=== PATIENT | female | born 1945 | race Asian ===

== ENCOUNTER 2020-09-08 17:38 | Emergency (ER) | payer MEDICARE, MEDICAID ==
[~2020-09-08] VITALS: Ht 157.5 cm; Wt 90.0 kg
[2020-09-08] MEDS ORDERED: ACETAMINOPHEN 325MG TABLET PO STA (18:27)
[2020-09-08] MEDS ORDERED: GABAPENTIN 300MG CAPSULE PO ONE (18:30)
[2020-09-08 18:53] LABS: BASOPHILS % 0.9 % (0.0-2.0); EOSINOPHILS % 3.2 % (0.0-5.0); HEMATOCRIT. 32.7 % (36.0-48.0); LYMPHOCYTES % 13.2 % (20.0-50.0); MEAN CORPUSCULAR HEMOGLOBIN 31.5 pg (28.0-32.0); MEAN CORPUSCULAR VOLUME 93.4 fL (81.0-99.0); MEAN PLATELET VOLUME 7.2 fl (7.4-10.4); MONOCYTES % 9.5 % (2.0-8.0); NEUTROPHILS % 73.2 % (40.0-76.0); PLATELET 348 x1000/uL (130-400); RED CELL DISTRIBUTION WIDTH 13.5 % (11.6-14.6)
[2020-09-08 18:54] LABS: CHLORIDE 100 mEq/L (98-107)
[2020-09-08] MEDS ORDERED: FUROSEMIDE 20MG/2ML VIAL IVP ONE (20:15)
[2020-09-08 21:43] LABS: CLARITY URINE CLEAR (CLEAR); COLOR URINE YELLOW (YELLOW); KETONES URINE NEGATIVE (NEGATIVE); LEUKOCYTE ESTERASE URINE 3+ (NEGATIVE); NITRITE URINE NEGATIVE (NEGATIVE); OCCULT BLOOD URINE TRACE (NEGATIVE); PROTEIN URINE NEGATIVE (NEGATIVE); SPECIFIC GRAVITY URINE 1.014 (1.005-1.030); UROBILINOGEN URINE 0.2 E.U./dL (0.2-1.0)
[2020-09-08] MEDS ORDERED: ASPIRIN 81MG TABLET PO ONE (22:30)
[2020-09-09 01:20] VITALS: BP 121/49
== END 2020-09-09 01:30 | disposition short-term general hospital (02) ==
LOC: ER 17:38
DX: I11.0 Hypertensive heart disease with heart failure (principal); I50.9 Heart failure, unspecified; I21.A1 Myocardial infarction type 2; E11.42 Type 2 diabetes mellitus with diabetic polyneuropathy; E07.9 Disorder of thyroid, unspecified; Z79.82 Long term (current) use of aspirin
CPT/HCPCS: 36415; 71045; 80048; 81003; 83880; 84484; 85025; 93005; 93970; 96374; 99285; J1940

== ENCOUNTER 2020-11-10 08:07 | Emergency (ER) | payer MEDICARE, MEDICAID ==
[~2020-11-10] VITALS: Ht 157.5 cm; Wt 73.0 kg
[2020-11-10 10:25] LABS: HEMATOCRIT. 32.5 % (36.0-48.0); HEMOGLOBIN. 11.2 g/dL (12.0-16.0); MEAN CORPUSCULAR HEMOGLOBIN 31.5 pg (28.0-32.0); MEAN CORPUSCULAR VOLUME 91.3 fL (81.0-99.0); MEAN PLATELET VOLUME 6.8 fl (7.4-10.4); PLATELET 306 x1000/uL (130-400); RED BLOOD CELL COUNT 3.56 mill/uL (4.2-5.4); RED CELL DISTRIBUTION WIDTH 13.9 % (11.6-14.6)
[2020-11-10 10:39] LABS: CLARITY URINE CLEAR (CLEAR); COLOR URINE YELLOW (YELLOW); KETONES URINE TRACE (NEGATIVE); LEUKOCYTE ESTERASE URINE NEGATIVE (NEGATIVE); NITRITE URINE NEGATIVE (NEGATIVE); OCCULT BLOOD URINE TRACE (NEGATIVE); PROTEIN URINE 1+ (NEGATIVE); SPECIFIC GRAVITY URINE 1.012 (1.005-1.030); UROBILINOGEN URINE 0.2 E.U./dL (0.2-1.0)
[2020-11-10 10:46] LABS: CHLORIDE 97 mEq/L (98-107)
[2020-11-10 11:46] LABS: INR 1.1; PROTHROMBIN TIME 11.3 sec (9.6-11.0)
[2020-11-10 15:06] LABS: PLATELET ESTIMATE NORMAL
[2020-11-10 17:44] VITALS: BP 168/79
== END 2020-11-10 17:44 | disposition home or self-care (01) ==
LOC: ER 08:07 → CANBEDREQ 20:47
DX: R53.1 Weakness (principal); E11.9 Type 2 diabetes mellitus without complications; I10 Essential (primary) hypertension; Z88.6 Allergy status to analgesic agent; Z98.890 Other specified postprocedural states
CPT/HCPCS: 36415; 71045; 80053; 81003; 83605; 84145; 84484; 85025; 93005; 99285

== ENCOUNTER 2020-11-14 07:30 | Inpatient (IN) | payer MEDICARE, MEDICAID ==
[~2020-11-14] VITALS: Ht 162.6 cm; Wt 79.8 kg
[2020-11-14] MEDS ORDERED: ACETAMINOPHEN 325MG TABLET PO STA (08:07)
[2020-11-14] MEDS ORDERED: AZITHROMYCIN 500 MG in DEXT 5% WATER 250 ML IV ONE (08:15)
[2020-11-14] MEDS ORDERED: CEFTRIAXONE 1 G PREMIX 50 ML IV ONE (08:15)
[2020-11-14] MEDS ORDERED: CEFTRIAXONE 1,000 MG in DEXTROSE 5% WATER 50 ML IV NR (09:00)
[2020-11-14 09:06] LABS: HEMATOCRIT. 32.9 % (36.0-48.0); HEMOGLOBIN. 11.2 g/dL (12.0-16.0); MEAN CORPUSCULAR HEMOGLOBIN 30.7 pg (28.0-32.0); MEAN CORPUSCULAR VOLUME 90.5 fL (81.0-99.0); MEAN PLATELET VOLUME 6.9 fl (7.4-10.4); PLATELET 270 x1000/uL (130-400); RED BLOOD CELL COUNT 3.64 mill/uL (4.2-5.4); RED CELL DISTRIBUTION WIDTH 13.6 % (11.6-14.6)
[2020-11-14 09:11] LABS: PARTIAL THROMBOPLASTIN TIME 35.3 sec (23.4-31.0); PROTHROMBIN TIME 10.6 sec (9.6-11.0)
[2020-11-14 09:12] LABS: CHLORIDE 97 mEq/L (98-107)
[2020-11-14 09:47] LABS: CLARITY URINE CLOUDY (CLEAR); COLOR URINE YELLOW (YELLOW); KETONES URINE 1+ (NEGATIVE); LEUKOCYTE ESTERASE URINE 2+ (NEGATIVE); NITRITE URINE NEGATIVE (NEGATIVE); OCCULT BLOOD URINE TRACE (NEGATIVE); PROTEIN URINE 2+ (NEGATIVE); SPECIFIC GRAVITY URINE 1.018 (1.005-1.030); UROBILINOGEN URINE 0.2 E.U./dL (0.2-1.0)
[2020-11-14 11:44] LABS: PLATELET ESTIMATE NORMAL
[2020-11-14] MEDS ORDERED: MORPHINE SULFATE 2 MG/ML CPJ (NOT FOR IM USE) IV PRN (16:00)
[2020-11-14] MEDS ORDERED: ONDANSETRON HCL 4MG/2ML INJ IV PRN (16:00)
[2020-11-14] MEDS ORDERED: ACETAMINOPHEN 325MG TABLET PO PRN (16:00)
[2020-11-14] MEDS ORDERED: IPRATROPIUM/ALBUTEROL 0.5-3(2.5)MG/3ML NEB HHN PRN (16:00)
[2020-11-14] MEDS ORDERED: ENOXAPARIN 40MG/0.4ML SYR SUBCUT SCH (17:00)
[2020-11-14] MEDS: LEVOFLOXACIN 500MG PREMIX 100 ML IV SCH (18:00)
[2020-11-15 05:31] LABS: HEMOGLOBIN. 11.4 g/dL (12.0-16.0); MEAN CORPUSCULAR HEMOGLOBIN 30.4 pg (28.0-32.0); MEAN CORPUSCULAR VOLUME 90.4 fL (81.0-99.0); MEAN PLATELET VOLUME 6.5 fl (7.4-10.4); PLATELET 254 x1000/uL (130-400); RED BLOOD CELL COUNT 3.76 mill/uL (4.2-5.4); RED CELL DISTRIBUTION WIDTH 13.4 % (11.6-14.6)
[2020-11-15 05:36] LABS: CHLORIDE 98 mEq/L (98-107)
[2020-11-15 05:44] LABS: CREATINE KINASE 117 IU/L (26-192); LDL CHOLESTEROL 110 mg/dL (5-100)
[2020-11-15 05:45] LABS: CREATINE KINASE MB FRACTION < 1.0 ng/mL (0.5-3.6)
[2020-11-15 05:46] LABS: HDL CHOLESTEROL 54 mg/dL (40-59); T4 FREE 1.12 ng/dL (0.76-1.46)
[2020-11-15] MEDS: ZINC SULFATE 220 MG ( 50 ) CAPSULE PO SCH (13:30)
[2020-11-15 13:37] LABS: PLATELET ESTIMATE NORMAL
[2020-11-15] MEDS: DEXAMETHASONE 10 MG/ML VIAL IV SCH (14:00)
[2020-11-15] MEDS: SODIUM CHLORIDE 0.9% 1,000 ML IV SCH ×2 (14:00→22:00)
[2020-11-15] MEDS: LEVOFLOXACIN 500MG PREMIX 100 ML IV SCH (21:24)
[2020-11-16] MEDS: ASCORBIC ACID 500 MG TABLET PO SCH ×3 (06:19→21:29)
[2020-11-16 08:50] LABS: HEMATOCRIT. 32.5 % (36.0-48.0); HEMOGLOBIN. 11.2 g/dL (12.0-16.0); MEAN CORPUSCULAR HEMOGLOBIN 31.1 pg (28.0-32.0); MEAN CORPUSCULAR VOLUME 90.3 fL (81.0-99.0); MEAN PLATELET VOLUME 6.7 fl (7.4-10.4); PLATELET 274 x1000/uL (130-400); RED BLOOD CELL COUNT 3.59 mill/uL (4.2-5.4); RED CELL DISTRIBUTION WIDTH 13.2 % (11.6-14.6)
[2020-11-16 08:54] LABS: CHLORIDE 103 mEq/L (98-107)
[2020-11-16 13:51] LABS: PLATELET ESTIMATE NORMAL
[2020-11-16] MEDS: DEXAMETHASONE 10 MG/ML VIAL IV SCH (15:40)
[2020-11-16] MEDS: ZINC SULFATE 220 MG ( 50 ) CAPSULE PO SCH (18:52)
[2020-11-16] MEDS: ENOXAPARIN 40MG/0.4ML SYR SUBCUT SCH (18:53)
[2020-11-16 19:01] LABS: BG BASE EXCESS -1.8 mmol/L (-2.0-2.0); BG CARBOXYHEMOGLOBIN 0.3 % (0.5-1.5); BG DEOXYHEMOGLOBIN 1.8 % (0.0-5.0); BG FRACTION INSPIRED OXYGEN 36; BG METHEMOGLOBIN 0.3 % (0.0-1.5); BG OXYGEN SATURATION 98.2 % (92.0-98.5); BG OXYHEMOGLOBIN 97.6 % (94.0-97.0); BG PCO2 29.9 mmHg (35.0-45.0); BG PH 7.465 (7.350-7.450); BG PO2 168.4 mmHg (75.0-100.0); BG SAMPLE SITE RIGHT RADIAL; BG TOTAL HEMOGLOBIN 11.7 g/dL (12.0-18.0); BG VENT MODE NASAL CANNULA
[2020-11-16] MEDS: LEVOFLOXACIN 500MG PREMIX 100 ML IV SCH (21:29)
[2020-11-17 00:42] LABS: BASOPHILS % 0.2 % (0.0-2.0); HEMATOCRIT. 36.3 % (36.0-48.0); HEMOGLOBIN. 12.1 g/dL (12.0-16.0); LYMPHOCYTES % 12.6 % (20.0-50.0); MEAN CORPUSCULAR VOLUME 90.4 fL (81.0-99.0); MEAN PLATELET VOLUME 6.9 fl (7.4-10.4); MONOCYTES % 13.9 % (2.0-8.0); NEUTROPHILS % 73.3 % (40.0-76.0); PLATELET 303 x1000/uL (130-400); RED BLOOD CELL COUNT 4.02 mill/uL (4.2-5.4); RED CELL DISTRIBUTION WIDTH 13.1 % (11.6-14.6)
[2020-11-17 00:46] LABS: CHLORIDE 102 mEq/L (98-107)
[2020-11-17 02:00] VITALS: BP 147/57
[2020-11-17 04:00] VITALS: BP 147/50
[2020-11-17] MEDS ORDERED: GLIP5TAB12 PO (06:14)
[2020-11-17] MEDS ORDERED: GLIP10TA10 PO (06:14)
[2020-11-17] MEDS ORDERED: METF-416 PO (06:14)
[2020-11-17] MEDS ORDERED: PIOG45TA5 PO (06:14)
[2020-11-17] MEDS ORDERED: COR25 PO (06:14)
[2020-11-17] MEDS ORDERED: DEXTROSE 50% WATER 50ML SYRINGE IV PRN (07:15)
[2020-11-17 08:00] VITALS: BP 124/50
[2020-11-17] MEDS: ZINC SULFATE 220 MG ( 50 ) CAPSULE PO SCH (08:21)
[2020-11-17] MEDS: DEXAMETHASONE 10 MG/ML VIAL IV SCH (08:21)
[2020-11-17] MEDS: ENOXAPARIN 40MG/0.4ML SYR SUBCUT SCH (08:22)
[2020-11-17] MEDS: INSULIN LISPRO 100 UNITS/ML SUBCUT SCH ×4 (08:23→22:03)
[2020-11-17] MEDS: ASCORBIC ACID 500 MG TABLET PO SCH ×2 (08:24→22:03)
[2020-11-17] MEDS ORDERED: *PATIENT'S OWN MEDICATION STORAGE XX SCH (09:45)
[2020-11-17 10:50] LABS: BASOPHILS % 0.3 % (0.0-2.0); HEMATOCRIT. 32.4 % (36.0-48.0); HEMOGLOBIN. 10.8 g/dL (12.0-16.0); LYMPHOCYTES % 7.5 % (20.0-50.0); MEAN CORPUSCULAR HEMOGLOBIN 30.5 pg (28.0-32.0); MEAN CORPUSCULAR VOLUME 91.8 fL (81.0-99.0); MEAN PLATELET VOLUME 6.7 fl (7.4-10.4); NEUTROPHILS % 80.2 % (40.0-76.0); PLATELET 271 x1000/uL (130-400); RED BLOOD CELL COUNT 3.53 mill/uL (4.2-5.4); RED CELL DISTRIBUTION WIDTH 13.4 % (11.6-14.6)
[2020-11-17 11:01] LABS: CHLORIDE 104 mEq/L (98-107)
[2020-11-17 12:00] VITALS: BP 151/56
[2020-11-17] MEDS: LOSARTAN POTASSIUM 50 MG TABLET PO SCH (12:41)
[2020-11-17] MEDS: BLOOD SUGAR DIAGNOSTIC STRIP TEST SCH ×3 (12:44→21:38)
[2020-11-17 16:00] VITALS: BP 114/54
[2020-11-17] MEDS: LEVOFLOXACIN 500MG TABLET PO SCH (17:24)
[2020-11-17 20:00] VITALS: BP 133/63
[2020-11-18] VITALS: BP 122/47
[2020-11-18 04:00] VITALS: BP 143/59
[2020-11-18] MEDS: INSULIN LISPRO 100 UNITS/ML SUBCUT SCH ×4 (07:40→23:18)
[2020-11-18] MEDS: BLOOD SUGAR DIAGNOSTIC STRIP TEST SCH ×4 (07:52→21:00)
[2020-11-18 08:00] VITALS: BP 151/53
[2020-11-18] MEDS: LOSARTAN POTASSIUM 50 MG TABLET PO SCH (11:47)
[2020-11-18] MEDS: DEXAMETHASONE 10 MG/ML VIAL IV SCH (11:47)
[2020-11-18] MEDS: LEVOFLOXACIN 500MG TABLET PO SCH (11:47)
[2020-11-18] MEDS: ZINC SULFATE 220 MG ( 50 ) CAPSULE PO SCH (11:47)
[2020-11-18] MEDS: ASCORBIC ACID 500 MG TABLET PO SCH ×2 (11:47→23:19)
[2020-11-18] MEDS: ENOXAPARIN 40MG/0.4ML SYR SUBCUT SCH (11:48)
[2020-11-18 12:00] VITALS: BP 144/57
[2020-11-18 16:00] VITALS: BP 148/62
[2020-11-18 20:00] VITALS: BP 153/56
[2020-11-19] VITALS: BP 122/52
[2020-11-19 04:00] VITALS: BP 153/58
[2020-11-19 08:00] VITALS: BP 158/51
[2020-11-19] MEDS: BLOOD SUGAR DIAGNOSTIC STRIP TEST SCH (08:07)
[2020-11-19] MEDS: ASCORBIC ACID 500 MG TABLET PO SCH (08:09)
[2020-11-19] MEDS: ZINC SULFATE 220 MG ( 50 ) CAPSULE PO SCH (08:09)
[2020-11-19] MEDS: DEXAMETHASONE 10 MG/ML VIAL IV SCH (08:10)
[2020-11-19] MEDS: ENOXAPARIN 40MG/0.4ML SYR SUBCUT SCH (08:10)
[2020-11-19] MEDS: INSULIN LISPRO 100 UNITS/ML SUBCUT SCH (08:11)
[2020-11-19] MEDS: LOSARTAN POTASSIUM 50 MG TABLET PO SCH (08:12)
[2020-11-19 11:31] VITALS: BP 158/51
[2020-11-19] MEDS ORDERED: PIOGLITAZONE 45MG TABLET PO SCH (14:00)
[2020-11-20] MEDS ORDERED: GLIPIZIDE 10MG TABLET PO SCH (07:10)
== END 2020-11-19 12:55 | DRG 177 ==
LOC: ER 07:45 → MICUSO 13:57 → 8WST 11-17 02:02
PROVIDERS: ADMIT Internal Medicine; ATTEND Internal Medicine
DX: U07.1 COVID-19 (principal); J12.89 Other viral pneumonia; J96.91 Respiratory failure, unspecified with hypoxia; N39.0 Urinary tract infection, site not specified; E87.1 Hypo-osmolality and hyponatremia; E11.9 Type 2 diabetes mellitus without complications; I10 Essential (primary) hypertension; Z88.8 Allergy status to other drugs, medicaments and biological substances; Z79.899 Other long term (current) drug therapy
CPT/HCPCS: 36415; 36600; 71045; 80048; 80053; 80061; 81003; 82375; 82550; 82553; 82728; 82805; 82962; 83036; 83605; 84145; 84439; 84443; 84484; 85025; 85379; 86141; 87635; 93005; 99285; C1893; J0456; J0696; J1100; J1650; J1815; J1956; J7060

== ENCOUNTER 2021-01-02 22:03 | Emergency (ER) | payer MEDICARE, MEDICAID ==
[~2021-01-02] VITALS: Ht 152.4 cm; Wt 55.0 kg
[~2021-01-02 22:03] MED LIST: COR25 PO; GLIP10TA10 PO; GLIP5TAB12 PO; METF-416 PO; PIOG45TA5 PO
[2021-01-02 23:21] LABS: BASOPHILS % 1.2 % (0.0-2.0); EOSINOPHILS % 2.8 % (0.0-5.0); HEMATOCRIT. 33.2 % (36.0-48.0); HEMOGLOBIN. 11.2 g/dL (12.0-16.0); LYMPHOCYTES % 23.1 % (20.0-50.0); MEAN CORPUSCULAR HEMOGLOBIN 30.7 pg (28.0-32.0); MEAN CORPUSCULAR VOLUME 91.3 fL (81.0-99.0); MEAN PLATELET VOLUME 6.9 fl (7.4-10.4); MONOCYTES % 8.7 % (2.0-8.0); NEUTROPHILS % 64.2 % (40.0-76.0); PLATELET 373 x1000/uL (130-400); RED BLOOD CELL COUNT 3.64 mill/uL (4.2-5.4); RED CELL DISTRIBUTION WIDTH 15.2 % (11.6-14.6)
[2021-01-02 23:28] LABS: CHLORIDE 100 mEq/L (98-107)
[2021-01-03] MEDS ORDERED: SODIUM CHLORIDE 0.9% 1,000 ML IV ONE
[2021-01-03 00:15] VITALS: BP 106/65
== END 2021-01-03 00:22 | disposition home or self-care (01) ==
LOC: ER 22:03
DX: E11.65 Type 2 diabetes mellitus with hyperglycemia (principal); E86.0 Dehydration; I10 Essential (primary) hypertension; Z88.6 Allergy status to analgesic agent
CPT/HCPCS: 36415; 80053; 85025; 99283; J7030

== ENCOUNTER 2021-01-22 18:30 | Emergency (ER) | payer MEDICAID, MEDICARE ==
[~2021-01-22] VITALS: Ht 162.6 cm; Wt 77.0 kg
[2021-01-22 19:52] LABS: BASOPHILS % 1.2 % (0.0-2.0); EOSINOPHILS % 4.6 % (0.0-5.0); HEMATOCRIT. 30.5 % (36.0-48.0); HEMOGLOBIN. 10.3 g/dL (12.0-16.0); LYMPHOCYTES % 28.1 % (20.0-50.0); MEAN CORPUSCULAR HEMOGLOBIN 31.5 pg (28.0-32.0); MEAN CORPUSCULAR VOLUME 92.6 fL (81.0-99.0); MEAN PLATELET VOLUME 7.3 fl (7.4-10.4); MONOCYTES % 10.9 % (2.0-8.0); NEUTROPHILS % 55.2 % (40.0-76.0); PLATELET 345 x1000/uL (130-400); RED BLOOD CELL COUNT 3.29 mill/uL (4.2-5.4); RED CELL DISTRIBUTION WIDTH 15.4 % (11.6-14.6)
[2021-01-22 19:58] LABS: CHLORIDE 102 mEq/L (98-107)
[2021-01-22 23:06] VITALS: BP 129/52
== END 2021-01-22 23:25 | disposition home or self-care (01) ==
LOC: ER 18:30
DX: E11.65 Type 2 diabetes mellitus with hyperglycemia (principal); I10 Essential (primary) hypertension; Z88.6 Allergy status to analgesic agent
CPT/HCPCS: 36415; 71045; 80048; 82962; 84484; 85025; 93005; 99285

== ENCOUNTER 2021-02-06 16:30 | Emergency (ER) | payer MEDICARE, MEDICAID ==
[~2021-02-06] VITALS: Ht 152.4 cm; Wt 64.0 kg
[2021-02-06 16:31] VITALS: BP 138/61
[2021-02-06 18:51] LABS: BASOPHILS % 1.6 % (0.0-2.0); EOSINOPHILS % 2.7 % (0.0-5.0); HEMATOCRIT. 34.3 % (36.0-48.0); HEMOGLOBIN. 11.3 g/dL (12.0-16.0); MEAN CORPUSCULAR HEMOGLOBIN 30.6 pg (28.0-32.0); MEAN CORPUSCULAR VOLUME 92.6 fL (81.0-99.0); MEAN PLATELET VOLUME 6.7 fl (7.4-10.4); MONOCYTES % 9.2 % (2.0-8.0); NEUTROPHILS % 61.5 % (40.0-76.0); PLATELET 368 x1000/uL (130-400); RED BLOOD CELL COUNT 3.71 mill/uL (4.2-5.4); RED CELL DISTRIBUTION WIDTH 14.9 % (11.6-14.6)
[2021-02-06 19:00] LABS: CHLORIDE 102 mEq/L (98-107)
== END 2021-02-06 19:36 | disposition home or self-care (01) ==
LOC: ER 16:30
DX: E11.65 Type 2 diabetes mellitus with hyperglycemia (principal); I10 Essential (primary) hypertension; E78.00 Pure hypercholesterolemia, unspecified; Z79.82 Long term (current) use of aspirin
CPT/HCPCS: 36415; 80053; 85025; 99283

== ENCOUNTER 2022-01-18 16:14 | Inpatient (IN) | payer MEDICARE, MEDICAID ==
[~2022-01-18] VITALS: Ht 154.9 cm; Wt 59.6 kg
[~2022-01-18 16:14] MED LIST changes: +ATOR10TA MT; +CLOP-31 MT; -GLIP5TAB12 PO; +LEVO500T89 MT
[2022-01-18 17:06] LABS: BASOPHILS % 0.8 % (0.0-2.0); EOSINOPHILS % 5.5 % (0.0-5.0); HEMATOCRIT. 32.6 % (36.0-48.0); HEMOGLOBIN. 11.3 g/dL (12.0-16.0); LYMPHOCYTES % 33.2 % (20.0-50.0); MEAN CORPUSCULAR HEMOGLOBIN 32.1 pg (28.0-32.0); MEAN CORPUSCULAR VOLUME 92.5 fL (81.0-99.0); MEAN PLATELET VOLUME 7.4 fl (7.4-10.4); MONOCYTES % 10.7 % (2.0-8.0); NEUTROPHILS % 49.8 % (40.0-76.0); PLATELET 353 x1000/uL (130-400); RED BLOOD CELL COUNT 3.52 mill/uL (4.2-5.4)
[2022-01-18 17:15] LABS: CHLORIDE 108 mEq/L (98-107)
[2022-01-18] MEDS ORDERED: SODIUM CHLORIDE 0.9% 250 ML IV ONE (17:15)
[2022-01-18] MEDS ORDERED: POTASSIUM CHLORIDE 20MEQ TABLET SR PO ONE (18:00)
[2022-01-18 20:38] LABS: CLARITY URINE CLOUDY (CLEAR); COLOR URINE YELLOW (YELLOW); KETONES URINE TRACE (NEGATIVE); LEUKOCYTE ESTERASE URINE 2+ (NEGATIVE); NITRITE URINE NEGATIVE (NEGATIVE); OCCULT BLOOD URINE NEGATIVE (NEGATIVE); PH URINE 5.5 (4.5-8.0); PROTEIN URINE NEGATIVE (NEGATIVE); SPECIFIC GRAVITY URINE 1.024 (1.005-1.030); UROBILINOGEN URINE 0.2 E.U./dL (0.2-1.0)
[2022-01-19 03:40] VITALS: BP 119/50
[2022-01-19] MEDS ORDERED: DEXTROSE 50% WATER 50ML SYRINGE IV PRN (07:45)
[2022-01-19] MEDS ORDERED: AMLO10TA80 MT (07:51)
[2022-01-19 08:33] VITALS: BP 116/42
[2022-01-19] MEDS ORDERED: DOCUSATE SODIUM 250MG CAPSULE PO NR (09:30)
[2022-01-19] MEDS ORDERED: CLOPIDOGREL 75MG TABLET PO NR (09:30)
[2022-01-19 11:37] LABS: CHLORIDE 108 mEq/L (98-107)
[2022-01-19 11:57] LABS: BASOPHILS % 0.3 % (0.0-2.0); EOSINOPHILS % 1.8 % (0.0-5.0); HEMATOCRIT. 34.7 % (36.0-48.0); LYMPHOCYTES % 27.1 % (20.0-50.0); MEAN CORPUSCULAR HEMOGLOBIN 32.4 pg (28.0-32.0); MEAN CORPUSCULAR VOLUME 93.3 fL (81.0-99.0); MEAN PLATELET VOLUME 7.7 fl (7.4-10.4); MONOCYTES % 9.1 % (2.0-8.0); NEUTROPHILS % 61.7 % (40.0-76.0); PLATELET 349 x1000/uL (130-400); RED BLOOD CELL COUNT 3.72 mill/uL (4.2-5.4)
[2022-01-19 12:00] VITALS: BP 114/46
[2022-01-19] MEDS: BLOOD SUGAR DIAGNOSTIC STRIP TEST SCH ×3 (12:01→20:59)
[2022-01-19] MEDS: INSULIN LISPRO 100 UNITS/ML SUBCUT SCH ×3 (13:45→21:01)
[2022-01-19] MEDS ORDERED: IPRATROPIUM/ALBUTEROL 0.5-3(2.5)MG/3ML NEB HHN PRN (15:15)
[2022-01-19] MEDS ORDERED: BISACODYL 10MG SUPP PR PRN (15:15)
[2022-01-19] MEDS ORDERED: NALOXONE HCL 0.4MG/ML VIAL IV PRN (15:15)
[2022-01-19] MEDS ORDERED: CEFTRIAXONE 1 G PREMIX 50 ML IV SCH (15:15)
[2022-01-19] MEDS ORDERED: ONDANSETRON HCL 4MG/2ML INJ IV PRN (15:15)
[2022-01-19] MEDS ORDERED: TRAMADOL 50MG TABLET PO PRN (15:15)
[2022-01-19 16:00] VITALS: BP 117/55
[2022-01-19] MEDS ORDERED: CEFTRIAXONE 1,000 MG in DEXTROSE 5% WATER 50 ML IV SCH (16:00)
[2022-01-19 20:00] VITALS: BP 112/67
[2022-01-19] MEDS ORDERED: ATORVASTATIN CALCIUM 10MG TABLET PO SCH (21:00)
[2022-01-20] VITALS: BP 128/54
[2022-01-20 04:00] VITALS: BP 128/53
[2022-01-20] MEDS: INSULIN LISPRO 100 UNITS/ML SUBCUT SCH ×2 (06:47→11:24)
[2022-01-20] MEDS: BLOOD SUGAR DIAGNOSTIC STRIP TEST SCH ×2 (06:47→11:07)
[2022-01-20 07:25] LABS: BASOPHILS % 0.3 % (0.0-2.0); EOSINOPHILS % 2.9 % (0.0-5.0); HEMATOCRIT. 33.1 % (36.0-48.0); HEMOGLOBIN. 11.5 g/dL (12.0-16.0); LYMPHOCYTES % 25.2 % (20.0-50.0); MEAN CORPUSCULAR HEMOGLOBIN 32.2 pg (28.0-32.0); MEAN CORPUSCULAR VOLUME 92.7 fL (81.0-99.0); MEAN PLATELET VOLUME 7.6 fl (7.4-10.4); MONOCYTES % 10.6 % (2.0-8.0); PLATELET 359 x1000/uL (130-400); RED BLOOD CELL COUNT 3.57 mill/uL (4.2-5.4); RED CELL DISTRIBUTION WIDTH 13.1 % (11.6-14.6)
[2022-01-20 07:43] LABS: CHLORIDE 106 mEq/L (98-107)
[2022-01-20 08:00] VITALS: BP 94/36
[2022-01-20] MEDS ORDERED: CLOPIDOGREL 75MG TABLET PO SCH (09:00)
[2022-01-20] MEDS ORDERED: AMLODIPINE 2.5MG TABLET PO SCH (09:00)
[2022-01-20] MEDS ORDERED: DOCUSATE SODIUM 250MG CAPSULE PO SCH (09:00)
[2022-01-20] MEDS ORDERED: MAGNESIUM HYDROXIDE 400MG/5ML 30ML UDC PO NR (10:00)
[2022-01-20] MEDS ORDERED: GLIPIZIDE 10MG TABLET PO SCH (11:30)
[2022-01-20 12:00] VITALS: BP 120/56
[2022-01-20] MEDS ORDERED: NA PHOS,M-B/NA PHOS,DI-BA ENEMA 118ML PR NR (12:00)
[2022-01-20] MEDS ORDERED: LACTULOSE 20G/30ML UDC PO NR (12:00)
[2022-01-20] MEDS ORDERED: PIOGLITAZONE 45MG TABLET PO SCH (13:00)
[2022-01-20] MEDS ORDERED: DOCUSATE SODIUM 250MG CAPSULE PO NR (13:15)
[2022-01-20] MEDS ORDERED: DOCU-138 MT (13:18)
[2022-01-20] MEDS ORDERED: AMLO2.5T2 MT (13:18)
[2022-01-20] MEDS ORDERED: PIOGLITAZONE 15MG TABLET PO NR (14:00)
[2022-01-20 14:34] VITALS: BP 119/43
[2022-01-20 16:00] VITALS: BP 115/50
[2022-01-21] MEDS ORDERED: PIOGLITAZONE 45MG TABLET PO SCH (09:00)
[2022-01-21] MEDS ORDERED: MAGNESIUM HYDROXIDE 400MG/5ML 30ML UDC PO SCH (09:00)
== END 2022-01-20 17:12 | disposition home or self-care (01) | DRG 309 ==
LOC: ER 16:14 → MICUSO 21:13 → 8WST 01-19 04:19
PROVIDERS: ADMIT Internal Medicine; ATTEND Internal Medicine
DX: R00.1 Bradycardia, unspecified (principal); N39.0 Urinary tract infection, site not specified; T44.7X5A Adverse effect of beta-adrenoreceptor antagonists, initial encounter; K59.00 Constipation, unspecified; E87.6 Hypokalemia; Z20.822 Contact with and (suspected) exposure to COVID-19; D63.8 Anemia in other chronic diseases classified elsewhere; E78.5 Hyperlipidemia, unspecified; I34.0 Nonrheumatic mitral (valve) insufficiency; E11.65 Type 2 diabetes mellitus with hyperglycemia; I10 Essential (primary) hypertension; E78.00 Pure hypercholesterolemia, unspecified; Y92.89 Other specified places as the place of occurrence of the external cause; Z28.3 Underimmunization status; Z79.02 Long term (current) use of antithrombotics/antiplatelets; Z86.16 Personal history of COVID-19; Z91.09 Other allergy status, other than to drugs and biological substances; Z79.84 Long term (current) use of oral hypoglycemic drugs; Z82.49 Family history of ischemic heart disease and other diseases of the circulatory system; Z79.899 Other long term (current) drug therapy
CPT/HCPCS: 36415; 71045; 80048; 80053; 81003; 82962; 83036; 83735; 83880; 84439; 84443; 84484; 85025; 87426; 93005; 93306; 93880; 97161; 99285; J0696; J1815; J7040; J7050; J7060

== ENCOUNTER 2023-11-14 16:52 | Emergency (ER) | payer MEDICARE, MEDICAID ==
[~2023-11-14] VITALS: Ht 152.4 cm; Wt 68.0 kg
[~2023-11-14 16:52] MED LIST changes: +AMLO2.5T2 MT; -COR25 PO; +DOCU-138 MT; +LEVO-65 MT; -LEVO500T89 MT; +METF-414 PO
[2023-11-14 17:11] VITALS: O2SAT 99
[2023-11-14 18:25] LABS: BASOPHILS % 0.5 % (0.0-2.0); HEMATOCRIT. 31.7 % (36.0-48.0); LYMPHOCYTES % 26.4 % (20.0-50.0); MEAN CORPUSCULAR HEMOGLOBIN 32.2 pg (28.0-32.0); MEAN CORPUSCULAR HGB CONC 34.6 g/dL (31.0-37.0); MEAN CORPUSCULAR VOLUME 93.2 fL (81.0-99.0); MEAN PLATELET VOLUME 6.9 fl (7.4-10.4); NEUTROPHILS % 62.1 % (40.0-76.0); PLATELET 399 x1000/uL (130-400); RED CELL DISTRIBUTION WIDTH 13.2 % (11.6-14.6); WHITE BLOOD COUNT 7.6 x1000/uL (4.5-11.0)
[2023-11-14 18:44] LABS: ALANINE AMINOTRANSFERASE 50 IU/L (10-49); ALBUMIN 3.9 g/dL (3.2-4.8); ASPARTATE AMINOTRANSFERASE 27 IU/L (<34); BILIRUBIN TOTAL 0.4 mg/dL (0.1-1.0); CALCIUM 9.2 mg/dL (8.7-10.4); CARBON DIOXIDE 23 mEq/L (21-32); CHLORIDE 105 mEq/L (98-107); CREATININE 0.8 mg/dL (0.6-1.0); GLUCOSE 177 mg/dL (70-105); POTASSIUM 3.9 mEq/L (3.5-5.1); PROTEIN TOTAL 7.2 g/dL (6.0-8.3); SODIUM 137 mEq/L (136-145); UREA NITROGEN BLOOD 33 mg/dL (9-23)
[2023-11-15 06:19] VITALS: BP 127/54; PULSE 80; RESP 18; TEMP 98
== END 2023-11-15 06:21 | disposition home or self-care (01) ==
LOC: ER 16:52
DX: E16.2 Hypoglycemia, unspecified (principal); I11.0 Hypertensive heart disease with heart failure; I50.9 Heart failure, unspecified; E11.9 Type 2 diabetes mellitus without complications; E78.00 Pure hypercholesterolemia, unspecified; E03.9 Hypothyroidism, unspecified; Z88.6 Allergy status to analgesic agent; Z88.8 Allergy status to other drugs, medicaments and biological substances
CPT/HCPCS: 36415; 80053; 82962; 85025; 99283

== ENCOUNTER 2023-11-28 19:09 | Inpatient (IN) | payer MEDICARE, MEDICAID ==
[~2023-11-28] VITALS: Ht 157.5 cm; Wt 51.3 kg
[2023-11-29 00:22] LABS: CLARITY URINE CLEAR (CLEAR); COLOR URINE YELLOW (YELLOW); GLUCOSE URINE 1+ (NEGATIVE); KETONES URINE NEGATIVE (NEGATIVE); LEUKOCYTE ESTERASE URINE NEGATIVE (NEGATIVE); NITRITE URINE NEGATIVE (NEGATIVE); OCCULT BLOOD URINE NEGATIVE (NEGATIVE); PH URINE 5.5 (4.5-8.0); PROTEIN URINE NEGATIVE (NEGATIVE); SPECIFIC GRAVITY URINE 1.021 (1.005-1.030); UROBILINOGEN URINE 0.2 E.U./dL (0.2-1.0)
[2023-11-29 00:34] LABS: HEMATOCRIT. 34.4 % (36.0-48.0); HEMOGLOBIN. 11.4 g/dL (12.0-16.0); MEAN CORPUSCULAR HEMOGLOBIN 31.1 pg (28.0-32.0); MEAN CORPUSCULAR HGB CONC 33.2 g/dL (31.0-37.0); MEAN CORPUSCULAR VOLUME 93.7 fL (81.0-99.0); MEAN PLATELET VOLUME 6.8 fl (7.4-10.4); PLATELET 351 x1000/uL (130-400); RED BLOOD CELL COUNT 3.67 mill/uL (4.2-5.4); RED CELL DISTRIBUTION WIDTH 13.5 % (11.6-14.6); WHITE BLOOD COUNT 6.3 x1000/uL (4.5-11.0)
[2023-11-29 00:37] LABS: DIFFERENTIAL COMMENT 1
[2023-11-29] MEDS ORDERED: GUAIFENESIN/DM 600MG/30MG ER TAB 12HR PO STA (00:53)
[2023-11-29 00:59] LABS: ALANINE AMINOTRANSFERASE 12 IU/L (10-49); ALBUMIN 4.2 g/dL (3.2-4.8); ASPARTATE AMINOTRANSFERASE 16 IU/L (<34); BILIRUBIN TOTAL 0.4 mg/dL (0.1-1.0); CALCIUM 9.7 mg/dL (8.7-10.4); CARBON DIOXIDE 25 mEq/L (21-32); CHLORIDE 105 mEq/L (98-107); CREATININE 0.7 mg/dL (0.6-1.0); GLUCOSE 185 mg/dL (70-105); POTASSIUM 3.1 mEq/L (3.5-5.1); PROTEIN TOTAL 7.4 g/dL (6.0-8.3); SODIUM 138 mEq/L (136-145); TROPONIN I HIGH SENSITIVITY 5 ng/L (3.0-34); UREA NITROGEN BLOOD 25 mg/dL (9-23)
[2023-11-29 01:35] LABS: BACTERIA URINE TRACE; RBC URINE NONE SEEN /hpf (0-2); SQUAMOUS EPITHELIAL CELL URINE FEW /lpf (RARE/1+); WBC URINE NONE SEEN /hpf (0-2)
[2023-11-29] MEDS ORDERED: POTASSIUM CHLORIDE 20MEQ/PACKET PO ONE (02:00)
[2023-11-29] MEDS ORDERED: SODIUM CHLORIDE 0.9% 1,000 ML IV ONE (02:00)
[2023-11-29 02:07] LABS: PLATELET ESTIMATE NORMAL
[2023-11-29] MEDS ORDERED: ONDANSETRON HCL 4MG/2ML INJ IV PRN (17:15)
[2023-11-29] MEDS ORDERED: DOCUSATE SODIUM 100MG CAPSULE PO PRN (17:29)
[2023-11-29] MEDS ORDERED: ACETAMINOPHEN 325MG TABLET PO PRN (17:30)
[2023-11-29] MEDS ORDERED: IPRATROPIUM/ALBUTEROL 0.5-3(2.5)MG/3ML NEB HHN PRN (17:30)
[2023-11-29] MEDS: AMLODIPINE 2.5MG TABLET PO SCH (17:42)
[2023-11-29] MEDS: CLOPIDOGREL 75MG TABLET PO SCH (17:43)
[2023-11-29] MEDS: ENOXAPARIN 40MG/0.4ML SYR SUBCUT SCH (20:00)
[2023-11-29] MEDS ORDERED: LEVOFLOXACIN 500MG PREMIX 100 ML IV SCH ×2 (20:00→23:00)
[2023-11-29] MEDS: ATORVASTATIN CALCIUM 10MG TABLET PO SCH (21:00)
[2023-11-29] MEDS ORDERED: DEXTROSE 50% WATER 50ML SYRINGE IV PRN (23:30)
[2023-11-30] VITALS (7 sets, daily range): BP systolic 100–153; BP diastolic 41–50; PULSE 82–107; RESP 18–25; TEMP 96.3–101.3; O2SAT 93
[2023-11-30 05:18] LABS: CREATINE KINASE MB FRACTION 0.5 ng/mL (0.5-3.6)
[2023-11-30 05:46] LABS: BASOPHILS % 0.6 % (0.0-2.0); EOSINOPHILS % 2.9 % (0.0-5.0); HEMATOCRIT. 32.6 % (36.0-48.0); HEMOGLOBIN. 10.9 g/dL (12.0-16.0); LYMPHOCYTES % 19.2 % (20.0-50.0); MEAN CORPUSCULAR HEMOGLOBIN 30.7 pg (28.0-32.0); MEAN CORPUSCULAR HGB CONC 33.5 g/dL (31.0-37.0); MEAN CORPUSCULAR VOLUME 91.5 fL (81.0-99.0); MONOCYTES % 13.5 % (2.0-8.0); NEUTROPHILS % 63.8 % (40.0-76.0); PLATELET 302 x1000/uL (130-400); RED BLOOD CELL COUNT 3.56 mill/uL (4.2-5.4); RED CELL DISTRIBUTION WIDTH 13.7 % (11.6-14.6); WHITE BLOOD COUNT 5.8 x1000/uL (4.5-11.0)
[2023-11-30] MEDS: BLOOD SUGAR DIAGNOSTIC STRIP TEST SCH ×4 (06:06→21:00)
[2023-11-30 06:08] LABS: ALANINE AMINOTRANSFERASE 10 IU/L (10-49); ALBUMIN 3.7 g/dL (3.2-4.8); ASPARTATE AMINOTRANSFERASE 16 IU/L (<34); BILIRUBIN TOTAL 0.5 mg/dL (0.1-1.0); CALCIUM 9.1 mg/dL (8.7-10.4); CARBON DIOXIDE 26 mEq/L (21-32); CHLORIDE 105 mEq/L (98-107); CREATINE KINASE 48 IU/L (34-145); CREATINE KINASE MB FRACTION 0.6 ng/mL (0.5-3.6); CREATININE 0.6 mg/dL (0.6-1.0); GLUCOSE 142 mg/dL (70-105); POTASSIUM 3.6 mEq/L (3.5-5.1); PROTEIN TOTAL 6.5 g/dL (6.0-8.3); SODIUM 137 mEq/L (136-145); TROPONIN I HIGH SENSITIVITY 6 ng/L (3.0-34); UREA NITROGEN BLOOD 24 mg/dL (9-23)
[2023-11-30] MEDS: INSULIN LISPRO 100 UNITS/ML SUBCUT SCH ×5 (07:50→21:54)
[2023-11-30] MEDS: AMLODIPINE 2.5MG TABLET PO SCH (08:49)
[2023-11-30] MEDS: CLOPIDOGREL 75MG TABLET PO SCH (08:49)
[2023-11-30] MEDS: ENOXAPARIN 40MG/0.4ML SYR SUBCUT SCH (20:00)
[2023-11-30] MEDS ORDERED: LEVOFLOXACIN 500MG PREMIX 100 ML IV SCH (20:00)
[2023-11-30] MEDS: ATORVASTATIN CALCIUM 10MG TABLET PO SCH (21:00)
[2023-11-30] MEDS ORDERED: PIPERACILLIN/TAZOBACTAM 3.375 G in DEXTROSE 5% WATER 50 ML IV SCH (21:45)
[2023-11-30 22:11] LABS: BG BASE EXCESS -2.6 mmol/L (-2.0-2.0); BG CARBOXYHEMOGLOBIN 0.3 % (0.5-1.5); BG DEOXYHEMOGLOBIN 2.5 % (0.0-5.0); BG FRACTION INSPIRED OXYGEN 28; BG METHEMOGLOBIN 0.6 % (0.0-1.5); BG OXYGEN SATURATION 97.5 % (92.0-98.5); BG OXYHEMOGLOBIN 96.6 % (94.0-97.0); BG PCO2 32.3 mmHg (35.0-45.0); BG PO2 99.3 mmHg (75.0-100.0); BG SAMPLE SITE RIGHT BRACHIAL; BG TOTAL HEMOGLOBIN 11.8 g/dL (12.0-18.0); BG VENT MODE NASAL CANNULA
[2023-11-30] MEDS ORDERED: VANCOMYCIN 1G PREMIX 200 ML IV SCH (23:00)
[2023-12-01 03:00] VITALS: BP 153/66; PULSE 86; RESP 18; TEMP 98.8
[2023-12-01 04:00] VITALS: BP 102/39; PULSE 107; RESP 19; TEMP 100.9
[2023-12-01] MEDS: BLOOD SUGAR DIAGNOSTIC STRIP TEST SCH ×4 (06:25→21:00)
[2023-12-01] MEDS: INSULIN LISPRO 100 UNITS/ML SUBCUT SCH ×4 (07:50→21:00)
[2023-12-01 08:00] VITALS: BP 122/55; PULSE 100; RESP 20; TEMP 98.8
[2023-12-01] MEDS: AMLODIPINE 2.5MG TABLET PO SCH (09:00)
[2023-12-01] MEDS: CLOPIDOGREL 75MG TABLET PO SCH (09:10)
[2023-12-01] MEDS ORDERED: LEVOFLOXACIN 750MG PREMIX 150 ML IV SCH (11:00)
[2023-12-01] MEDS ORDERED: VANCOMYCIN 500MG PREMIX 100 ML IV SCH (11:00)
[2023-12-01 12:00] VITALS: BP 116/50; PULSE 94; RESP 19; TEMP 97.5
[2023-12-01] MEDS: VANCOMYCIN 750MG PREMIX 150 ML IV SCH (12:58)
[2023-12-01 13:11] LABS: BG BASE EXCESS -4.6 mmol/L (-2.0-2.0); BG CARBOXYHEMOGLOBIN 0.3 % (0.5-1.5); BG DEOXYHEMOGLOBIN 3.8 % (0.0-5.0); BG FRACTION INSPIRED OXYGEN 21; BG HCO3 ACT 18.8 mmol/L (22.0-26.0); BG METHEMOGLOBIN 0.3 % (0.0-1.5); BG OXYGEN SATURATION 96.2 % (92.0-98.5); BG OXYHEMOGLOBIN 95.6 % (94.0-97.0); BG PCO2 29.5 mmHg (35.0-45.0); BG PH 7.422 (7.350-7.450); BG PO2 84.8 mmHg (75.0-100.0); BG SAMPLE SITE RIGHT BRACHIAL; BG VENT MODE ROOM AIR
[2023-12-01 16:00] VITALS: BP 101/46; PULSE 92; RESP 20; TEMP 98.1
[2023-12-01 20:00] VITALS: BP 127/52; PULSE 87; RESP 17; TEMP 97.6
[2023-12-01] MEDS: ENOXAPARIN 40MG/0.4ML SYR SUBCUT SCH (20:00)
[2023-12-01] MEDS: ATORVASTATIN CALCIUM 10MG TABLET PO SCH (23:08)
[2023-12-02] VITALS (7 sets, daily range): BP systolic 117–139; BP diastolic 44–60; PULSE 83–97; RESP 17–18; TEMP 96.8–97.9; O2SAT 100
[2023-12-02 04:50] LABS: HEMATOCRIT. 31.8 % (36.0-48.0); HEMOGLOBIN. 10.7 g/dL (12.0-16.0); MEAN CORPUSCULAR HEMOGLOBIN 30.9 pg (28.0-32.0); MEAN CORPUSCULAR HGB CONC 33.6 g/dL (31.0-37.0); MEAN CORPUSCULAR VOLUME 92.2 fL (81.0-99.0); MEAN PLATELET VOLUME 7.2 fl (7.4-10.4); PLATELET 260 x1000/uL (130-400); RED BLOOD CELL COUNT 3.44 mill/uL (4.2-5.4); RED CELL DISTRIBUTION WIDTH 13.1 % (11.6-14.6); WHITE BLOOD COUNT 5.8 x1000/uL (4.5-11.0)
[2023-12-02 05:03] LABS: CALCIUM 8.5 mg/dL (8.7-10.4); CARBON DIOXIDE 23 mEq/L (21-32); CHLORIDE 109 mEq/L (98-107); CREATININE 0.6 mg/dL (0.6-1.0); GLUCOSE 163 mg/dL (70-105); POTASSIUM 3.7 mEq/L (3.5-5.1); SODIUM 138 mEq/L (136-145); UREA NITROGEN BLOOD 23 mg/dL (9-23); VANCOMYCIN TROUGH 9.6 ug/mL (5.0-10.0)
[2023-12-02 05:16] LABS: DIFFERENTIAL COMMENT 1
[2023-12-02 05:47] LABS: PLATELET ESTIMATE NORMAL
[2023-12-02] MEDS: VANCOMYCIN 750MG PREMIX 150 ML IV SCH (06:45)
[2023-12-02] MEDS: BLOOD SUGAR DIAGNOSTIC STRIP TEST SCH ×2 (07:49→12:20)
[2023-12-02] MEDS: INSULIN LISPRO 100 UNITS/ML SUBCUT SCH ×2 (07:50→12:50)
[2023-12-02] MEDS: CLOPIDOGREL 75MG TABLET PO SCH (08:55)
[2023-12-02] MEDS: AMLODIPINE 2.5MG TABLET PO SCH (08:56)
[2023-12-02] MEDS ORDERED: VANCOMYCIN 1G PREMIX 200 ML IV SCH (18:00)
[2023-12-03] MEDS ORDERED: LEVOFLOXACIN 250MG TABLET PO SCH (11:00)
== END 2023-12-02 16:08 | disposition home or self-care (01) | DRG 153 ==
LOC: ER 19:09 → 5WST 11-29 02:57 → 6EST 11-29 21:39
PROVIDERS: ADMIT Internal Medicine; ATTEND Internal Medicine
DX: J06.9 Acute upper respiratory infection, unspecified (principal); E87.6 Hypokalemia; E86.0 Dehydration; E03.9 Hypothyroidism, unspecified; I11.0 Hypertensive heart disease with heart failure; E11.9 Type 2 diabetes mellitus without complications; I50.9 Heart failure, unspecified; E78.00 Pure hypercholesterolemia, unspecified; K80.20 Calculus of gallbladder without cholecystitis without obstruction; D64.9 Anemia, unspecified; Z82.49 Family history of ischemic heart disease and other diseases of the circulatory system; Z88.6 Allergy status to analgesic agent; Z79.899 Other long term (current) drug therapy; Z79.84 Long term (current) use of oral hypoglycemic drugs; Z79.4 Long term (current) use of insulin
CPT/HCPCS: 36415; 36600; 71045; 71250; 80048; 80053; 80202; 81003; 82375; 82550; 82553; 82805; 82962; 83036; 83880; 84145; 84484; 85025; 85379; 87426; 87804; 93005; 94640; 99285; J1650; J1815; J1956; J3370; J7030